=== PATIENT | female | born 1965 | race Caucasian/White ===

== ENCOUNTER → 2018-06-24 | Day surgery (SDC) | payer BC ==
[~2018-06-24] MED LIST: BUPIVACAINE 0.25% 30ML SDV INJ ONE; CEFAZOLIN SOD 2 GM/D5W 50ML 50 ML IV ONE; DEXAMETHASONE SOD PHOS INJ 4 MG/ML VIAL ONE; FENTANYL CITRATE/PF 100MCG/2 ML INJ ONE; HYDROMORPHONE 2MG/ML 2 MG/ML ML ONE; LIDOCAINE HCL 2% JELLY 5 ML TUBE ONE; LIDOCAINE HCL 2% LOCAL INJ 5 ML SDV VIAL INJ ONE; MEPERIDINE HCL INJ 25 MG/ML VIAL ONE; METOCLOPRAMIDE HCL 10 MG/2ML VIAL ONE; MIDAZOLAM HCL 2 MG/2 ML VIAL ONE; MULTI-VITAMIN1 EACH PO; NEOSTIGMINE 1 MG/ML 10ML VIAL ONE; ONDANSETRON HCL INJ 2MG/ML 2ML 2 MG/ML VIAL ONE; PROPOFOL IV EMULSION 10 MG/ML 20 ML VIAL ONE; RANITIDINE HCL300 M1 PO; SEVOFLURANE INHAL SOLN 250 ML PEN BTL ONE; UNITHROID25 MCG PO; VITAMIN C1000 MG PO; VYTORIN 10-101 EACH PO
--- OUTSIDE RECORDS SUMMARY | 2018-06-24 05:45 | XMS REPORT | Clinical Summary ---
Author Author MARCUS Alleantia [facility] Address Unknown Phone Unavailable Care Team Providers Care Salesperson Burial Plots Name Role Phone Froilan Rivas MD PCP Allergies Not on File Medications Not on file Active Problems Not on file Encounters Care Team Description Date Type Bus AnalystTimothy Mays MD Breast mass (Primary Dx) 06/20/2018 Outside Orders Central Scheduling after 06/23/2017 Social History Date Tobacco Use Types Packs/Day Years Used Never Assessed Sex Assigned at Date Recorded Not on file Industry Job Start Date Occupation Not on file Not on file Not on file Travel End Travel History Travel Start No recent travel history available. Last Filed Vital Signs Not on file Plan of Treatment Care Team Description Date Type Bus AnalystTimothy Mays MD [address] [address] [phone] 07/18/2018 Appointment Timothy Mays MD [address] [address] [phone] 07/18/2018 Appointment Results Not on fileafter 06/23/2017 Insurance Payer Benefit Subscriber ID Type Phone Address Plan / Group [employer]UE [employer] BCBS PPO xxxxxxxxxxxx PPO [phone] [address] [place] [address] CHOICE
--- OUTSIDE RECORDS SUMMARY | 2018-06-24 05:45 | XMS REPORT ---
Author Author [facility] Address Unknown Phone Unavailable Care Team Providers Care Merchandising Representative Name Role Phone Unavailable Unavailable Payers Payer Name Policy Type Policy Number Effective Date Expiration Date Problems This patient has no known problems. Allergies, Adverse Reactions, Alerts Allergy Name Allergy Type Status Severity Reaction(s) Onset Date Inactive Date Treating Clinician Comments iodine DA Active U 2016-07-06 00:00:00 albuterol DA Active U 2016-07-06 00:00:00 cefaclor DA Active U 2016-07-06 00:00:00 Medications This patient has no known medications. Results Test Description Test Time Test Comments Text Results Atomic Results Result Comments MM, U/S, BREAST, BILATERAL 2017-06-03 15:51:00 Reason for Exam:->Pain, unspecified #[id number] - MM, U/S, BREAST, BILATERALULTRASOUND OF BOTH BREASTS: 06/03/2017Color flow and real-time ultrasound of both breasts were performed. Ultrasound of all four quadrants and the retroareolar breast was performed. Helms scale images of the real-time examination were reviewed. No suspicious abnormalities were seen sonographically in either breast. IMPRESSION: BENIGN The findings have been discussed with the patient. There is no sonographic evidence of malignancy. Zoë West M.D. pth/:06/03/2017 15:51:04 Normal Exam Ultrasound BI-RADS: 2 Benign [id number] , DIGITAL MAMMO, DIAGNOSTIC, BILATERAL INCLUDING CAD 2017-06-03 14:28:00 Reason for Exam:->Pain, unspecified #[id number] - MM, DIGITAL MAMMO, DIAGNOSTIC, BILATERAL INCLUDING CADBILATERAL DIGITAL DIAGNOSTIC MAMMOGRAM WITH CAD: 06/03/2017Comparison is made to exams dated: 06/12/2016 mammogram and 05/20/2015 mammogram - [facility] hospital[facility]. The tissue of both breasts is heterogeneously dense. This may lower the sensitivity of mammography. Current study was also evaluated with a Computer Aided Detection (CAD) system. Benign appearing calcifications are present in the left breast. No significant masses, calcifications, or other findings are seen in either breast. IMPRESSION: BENIGNThere is no mammographic evidence of malignancy. A 1 year screening mammogram is recommended. Zoë West M.D. pth/:06/03/2017 14:28:47 Normal Exam Mammogram BI-RADS: 2 Benign [id number]
--- OUTSIDE RECORDS SUMMARY | 2018-06-24 05:45 | XMS REPORT | Clinical Summary ---
Author Author [facility] [place] [facility] Address Unknown Phone Unavailable Care Team Providers [employer] Analyst Name Role Phone Froilan Rivas MD PCP Allergies Comments Active Allergy Reactions Severity Noted Date Cefaclor Shortness Of High 12/12/2015 Breath Iodinated Contrast- Oral Itching, High 10/15/2016 And Iv Dye Rash, Shortness Of Breath Iodine 12/12/2015 Albuterol Sulfate Shortness Of High 12/12/2015 Breath Medications End Date Status Medication Sig Dispensed Refills Start Date Active VYTORIN 10-10 10-10 mg TAKE 1 T BY 2 per tablet MOUTH DAILY 7 Active CALCIUM CARBONATE (TUMS Take by 0 E-X ORAL) mouth. Active MAG/ALUMINUM/SOD Take by 0 BICARB/ALGINC (GAVISCON mouth. ORAL) Active UNITHROID 25 mcg tablet TK 1 T PO 3 TWICE A WEEK 8 AND 1/2 T FIVE TIMES A WEEK 06/15/2019 Active omeprazole (PriLOSEC) 20 Take 1 30 capsule 11 MG capsule capsule (20 9 mg total) by mouth daily. 07/15/2018 Active chlordiazepoxide-clidiniu Take 1 60 capsule 0 m (LIBRAX, WITH capsule by 9 CLIDINIUM,) 5-2.5 mg per mouth 3 capsule (three) times a day as needed for indigestion for up to 30 days. Active ranitidine (ZANTAC) 300 TAKE 1 60 tablet 11 MG tabletIndications: TABLET(300 9 Gastroesophageal reflux MG) BY MOUTH disease, esophagitis TWICE DAILY presence not specified Active omeprazole OTC (PriLOSEC Take 1 tablet 30 tablet 0 OTC) 20 MG EC (20 mg total) 9 tabletIndications: by mouth Gastroesophageal reflux daily. disease without esophagitis 06/15/2018 Discontinued TIROSINT 13 mcg capsule TK 1 C PO QOD 3 7 03/17/2018 amitriptyline (ELAVIL) Take 0.5 30 tablet 3 150 MG tablet tablets (75 7 mg total) by mouth nightly. 08/02/2017 Discontinued ranitidine (ZANTAC) 300 Take 1 tablet 60 tablet 3 MG tabletIndications: (300 mg 7 Gastroesophageal reflux total) by disease, esophagitis mouth 2 (two) presence not specified times a day for 30 days. 12/01/2017 Discontinued ranitidine (ZANTAC) 300 TAKE 1 60 tablet 3 MG tabletIndications: TABLET(300 8 Gastroesophageal reflux MG) BY MOUTH disease, esophagitis TWICE DAILY presence not specified 01/01/2018 Discontinued ranitidine (ZANTAC) 300 TAKE 1 60 tablet 0 201 MG tabletIndications: TABLET(300 8 Gastroesophageal reflux MG) BY MOUTH disease, esophagitis TWICE DAILY presence not specified 02/15/2018 Discontinued ranitidine (ZANTAC) 300 TAKE 1 60 tablet 0 201 MG tabletIndications: TABLET(300 8 Gastroesophageal reflux MG) BY MOUTH disease, esophagitis TWICE DAILY presence not specified 06/15/2018 Discontinued ranitidine (ZANTAC) 300 TAKE 1 60 tablet 2 201 MG tabletIndications: TABLET(300 8 Gastroesophageal reflux MG) BY MOUTH disease, esophagitis TWICE DAILY presence not specified 03/12/2018 Discontinued ranitidine (ZANTAC) 300 TAKE 1 60 tablet 0 MG tabletIndications: TABLET(300 8 Gastroesophageal reflux MG) BY MOUTH disease, esophagitis TWICE DAILY presence not specified 04/06/2018 Discontinued ranitidine (ZANTAC) 300 TAKE 1 60 tablet 0 201 MG tabletIndications: TABLET(300 8 Gastroesophageal reflux MG) BY MOUTH disease, esophagitis TWICE DAILY presence not specified 05/01/2018 Discontinued ranitidine (ZANTAC) 300 TAKE 1 60 tablet 0 MG tabletIndications: TABLET(300 8 Gastroesophageal reflux MG) BY MOUTH disease, esophagitis TWICE DAILY presence not specified 06/15/2018 Discontinued ranitidine (ZANTAC) 300 TAKE 1 60 tablet 0 12/17/201 MG tabletIndications: TABLET(300 8 Gastroesophageal reflux MG) BY MOUTH disease, esophagitis TWICE DAILY presence not specified Active Problems Not on file Encounters Care Team Description Date Type Specialty Lakia Hampton MA Gastroesophageal reflux disease without esophagitis (Primary Dx) 06/17/2018 Telephone Gastroenterology Shauna Lee MD Gastroesophageal reflux disease without esophagitis (Primary Dx); Epigastric pain; Irritable bowel syndrome, unspecified type; Bloating; Gastroesophageal reflux disease, esophagitis presence not specified 06/15/2018 Office Visit Gastroenterology Lakia Hampton MA Irritable bowel syndrome, unspecified type (Primary Dx); Bloating 06/15/2018 Orders Only Gastroenterology Abby Ignacio LVN 06/10/2018 Telephone Gastroenterology Shauna Lee MD 06/09/2018 Telephone GastroenterShauna Vance MD Gastroesophageal reflux disease, esophagitis presence not specified 06/03/2018 Refill GastroenterShauna Vance MD Gastroesophageal reflux disease, esophagitis presence not specified 05/01/2018 Refill GastroenterShauna Vance MD Gastroesophageal reflux disease, esophagitis presence not specified 04/06/2018 Refill GastroenterShauna Vance MD Gastroesophageal reflux disease, esophagitis presence not specified 03/12/2018 Refill GastroenterShauna Vance MD 02/16/2018 Refill GastroenterShauna Vance MD Gastroesophageal reflux disease, esophagitis presence not specified 02/15/2018 Refill GastroenterShauna Vance MD Gastroesophageal reflux disease, esophagitis presence not specified 01/24/2018 Refill GastroenterShauna Vance MD Gastroesophageal reflux disease, esophagitis presence not specified 01/01/2018 Refill GastroenterShauna Vance MD Gastroesophageal reflux disease, esophagitis presence not specified 12/01/2017 Refill Gastroenterology Tamar Wang MD Thyroid cancer; Thyroid nodule 10/26/2017 Hospital Radiology Encounter Tamar Wang MD Thyroid cancer (Primary Dx); Thyroid nodule 10/18/2017 Transcribe Access Orders Shauna Lee MD Gastroesophageal reflux disease, esophagitis presence not specified 08/02/2017 Refill Gastroenterology after 06/23/2017 Family History Medical History Relation Name Comments Breast cancer Maternal Grandmother Colon cancer Maternal Uncle Colon polyps Paternal Aunt Relation Name Status Comments Maternal Grandmother (Age 40) Maternal Uncle Paternal Aunt Social History Date Tobacco Use Types Packs/Day Years Used Never Smoker Smokeless Tobacco: Never Used Alcohol Use Drinks/Week oz/Week Comments No Sex Assigned at Date Recorded Not on file Industry Job Start Date Occupation Not on file Not on file Not on file Travel End Travel History Travel Start No recent travel history available. 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 Blood Pressure 124/75 06/15/2018 2:13 PM DRAPERY INSPECTOR Pulse 79 06/15/2018 2:13 PM DRAPERY INSPECTOR Temperature 36.7 C (98 F) - Respiratory Rate - - Oxygen Saturation - - Inhaled Oxygen - Concentration - Weight - 06/15/2018 2:13 PM DRAPERY INSPECTOR Height 160 cm (5' 3") - Body Mass Index - Plan of Treatment Care Team Description Date Type Specialty 07/15/2018 [facility] [address] [facility] [address] [place] [address] [phone] 07/19/2018 Consult Weight Management Health Maintenance Due Date Last Done Comments CERVICAL CANCER SCREENING 1985 COLON CANCER SCREENING 2014 SHINGLES VACCINES ( of 2014 2) BREAST CANCER SCREENING 11/09/2014 11/09/2012 INFLUENZA VACCINE 12/15/2017 Procedures Comments Procedure Name Priority Date/Time Associated Diagnosis THYROID STIMULATING Routine 01/24/2018 Hyperlipidemia, HORMONE 9:40 AM CDT unspecified hyperlipidemia type Myxedema heart disease Malignant neoplasm of thyroid gland LIPID PANEL Routine 01/24/2018 Hyperlipidemia, 9:40 AM CDT unspecified hyperlipidemia type Myxedema heart disease Malignant neoplasm of thyroid gland T4, FREE Routine 01/24/2018 Hyperlipidemia, 9:40 AM CDT unspecified hyperlipidemia type Myxedema heart disease Malignant neoplasm of thyroid gland T3, FREE Routine 01/24/2018 Hyperlipidemia, 9:40 AM CDT unspecified hyperlipidemia type Myxedema heart disease Malignant neoplasm of thyroid gland HC COMPLETE BLD COUNT Routine 01/24/2018 Hyperlipidemia, W/AUTO DIFF 9:40 AM CDT unspecified hyperlipidemia type Myxedema heart disease Malignant neoplasm of thyroid gland THYROID STIMULATING Routine 11/25/2017 Thyroid cancer HORMONE 3:11 PM CDT T4, FREE Routine 11/25/2017 Thyroid cancer 3:11 PM CDT T3, FREE Routine 11/25/2017 Thyroid cancer 3:11 PM CDT US THYROID Routine 10/26/2017 Thyroid cancer 3:19 PM CDT Thyroid nodule ZZESTIMATED GFR Routine 10/12/2017 7:44 AM CDT VITAMIN B12 LEVEL Routine 10/12/2017 Other fatigue 7:44 AM CDT Pure hypercholesterolemia Myxedema heart disease Menopause Malignant neoplasm of thyroid gland THYROID STIMULATING Routine 10/12/2017 Other fatigue HORMONE 7:44 AM CDT Pure hypercholesterolemia Myxedema heart disease Menopause Malignant neoplasm of thyroid gland LIPID PANEL Routine 10/12/2017 Other fatigue 7:44 AM CDT Pure hypercholesterolemia Myxedema heart disease Menopause Malignant neoplasm of thyroid gland INSULIN, RANDOM Routine 10/12/2017 Other fatigue 7:44 AM CDT Pure hypercholesterolemia Myxedema heart disease Menopause Malignant neoplasm of thyroid gland T4, FREE Routine 10/12/2017 Other fatigue 7:44 AM CDT Pure hypercholesterolemia Myxedema heart disease Menopause Malignant neoplasm of thyroid gland T3, FREE Routine 10/12/2017 Other fatigue 7:44 AM CDT Pure hypercholesterolemia Myxedema heart disease Menopause Malignant neoplasm of thyroid gland C-PEPTIDE Routine 10/12/2017 Other fatigue 7:44 AM CDT Pure hypercholesterolemia Myxedema heart disease Menopause Malignant neoplasm of thyroid gland CORTISOL LEVEL, RANDOM Routine 10/12/2017 Other fatigue 7:44 AM CDT Pure hypercholesterolemia Myxedema heart disease Menopause Malignant neoplasm of thyroid gland HC COMPLETE BLD COUNT Routine 10/12/2017 Other fatigue W/AUTO DIFF 7:44 AM CDT Pure hypercholesterolemia Myxedema heart disease Menopause Malignant neoplasm of thyroid gland COMPREHENSIVE METABOLIC Routine 10/12/2017 Other fatigue PANEL 7:44 AM CDT Pure hypercholesterolemia Myxedema heart disease Menopause Malignant neoplasm of thyroid gland HEMOGLOBIN A1C Routine 10/12/2017 Other fatigue 7:44 AM CDT Pure hypercholesterolemia Myxedema heart disease Menopause Malignant neoplasm of thyroid gland VITAMIN D 25 HYDROXY Routine 10/12/2017 Other fatigue LEVEL 7:44 AM CDT Pure hypercholesterolemia Myxedema heart disease Menopause Malignant neoplasm of thyroid gland THYROID STIMULATING Routine 07/15/2017 Hypothyroidism, HORMONE 4:15 PM DRAPERY INSPECTOR unspecified type Thyroid cancer T4, FREE Routine 07/15/2017 Hypothyroidism, 4:15 PM DRAPERY INSPECTOR unspecified type Thyroid cancer T3, FREE Routine 07/15/2017 Hypothyroidism, 4:15 PM DRAPERY INSPECTOR unspecified type Thyroid cancer after 06/23/2017 Results * CBC with platelet and differential (01/24/2018 9:40 AM CDT) Only the most recent of 2 results within the time period is included. WBC 6.7 4.5 - 11.0 k/uL [facility] DEPARTMENT OF PATHOLOGY AND GENOMIC MEDICINE RBC 4.08 (L) 4.20 - 5.50 m/uL [facility] DEPARTMENT OF PATHOLOGY AND GENOMIC MEDICINE HGB 13.1 12.0 - 16.0 g/dL [facility] DEPARTMENT OF PATHOLOGY AND GENOMIC MEDICINE HCT 38.9 37.0 - 47.0 % [facility] DEPARTMENT OF PATHOLOGY AND GENOMIC MEDICINE MCV 95.3 82.0 - 100.0 fL [facility] DEPARTMENT OF PATHOLOGY AND GENOMIC MEDICINE MCH 32.1 27.0 - 34.0 pg [facility] DEPARTMENT OF PATHOLOGY AND GENOMIC MEDICINE MCHC 33.7 31.0 - 37.0 g/dL [facility] DEPARTMENT OF PATHOLOGY AND GENOMIC MEDICINE RDW - SD 41.1 37.0 - 55.0 fL [facility] DEPARTMENT OF PATHOLOGY AND GENOMIC MEDICINE MPV 10.0 6.9 - 11.0 fL [facility] DEPARTMENT OF PATHOLOGY AND GENOMIC MEDICINE Platelet count 293 150 - 400 K/uL [facility] DEPARTMENT OF PATHOLOGY AND GENOMIC MEDICINE Nucleated RBC 0.00 /100 WBC [facility] DEPARTMENT OF PATHOLOGY AND GENOMIC MEDICINE Neutrophils 57.5 39.0 - 69.0 % [facility] DEPARTMENT OF PATHOLOGY AND GENOMIC MEDICINE Lymphocytes 33.0 25.0 - 45.0 % [facility] DEPARTMENT OF PATHOLOGY AND GENOMIC MEDICINE Monocytes 7.0 0.0 - 10.0 % [facility] DEPARTMENT OF PATHOLOGY AND GENOMIC MEDICINE Eosinophils 1.6 0.0 - 5.0 % [facility] DEPARTMENT OF PATHOLOGY AND GENOMIC MEDICINE Basophils 0.6 0.0 - 1.0 % [facility] OF PATHOLOGY AND GENOMIC MEDICINE Immature granulocytes 0.3 0.0 - 1.0 % [facility] OF PATHOLOGY AND GENOMIC MEDICINE Specimen Blood Performing Organization Address City/[facility] [place] [address] PATHOLOGY AND [facility] * T3, free (01/24/2018 9:40 AM CDT) Only the most recent of 4 results within the time period is included. T3, free 2.7 2.4 - 4.2 pg/mL [email or web address] Comment: REFERENCE INTERVAL: Triiodothyronine, Free (Free T3) Access complete set of age- and/or gender-specific reference intervals for this test in the [facility] Laboratory Test Directory ([facility]). Performed by [facility], [address] [place] [address] [id number] [email or web address], Gerardo Verduzco MD - Lab. Director Specimen Serum Performing Organization Address [facility] Centercode Phone Number [email or web address] [address] [address] * Thyroid stimulating hormone (01/24/2018 9:40 AM CDT) Only the most recent of 4 results within the time period is included. TSH 2.98 0.27 - 4.20 uIU/mL [facility] DEPARTMENT OF PATHOLOGY AND [employer] MEDICINE Specimen Blood Performing Organization Address City/[facility] [place] [address] PATHOLOGY AND [facility] * T4, free (01/24/2018 9:40 AM CDT) Only the most recent of 4 results within the time period is included. T4, free 1.5 0.9 - 1.7 ng/dL [facility] DEPARTMENT OF PATHOLOGY AND GENOMIC MEDICINE Specimen Blood Performing Organization Address City/[facility]/Zipcode Phone Number [facility] [address] [place] [address] PATHOLOGY AND GENOMIC MEDICINE * Lipid panel (01/24/2018 9:40 AM CDT) Only the most recent of 2 results within the time period is included. Cholesterol 173 0 - 199 mg/dL [facility] DEPARTMENT OF PATHOLOGY AND GENOMIC MEDICINE Triglycerides 93 0 - 149 mg/dL [facility] DEPARTMENT OF PATHOLOGY AND GENOMIC MEDICINE HDL cholesterol 59 40 - 99,999 mg/dL [facility] DEPARTMENT OF PATHOLOGY AND GENOMIC MEDICINE LDL cholesterol 103 (H) 0 - 99 mg/dL [facility] DEPARTMENT OF PATHOLOGY AND GENOMIC MEDICINE Lipid panel See below [facility] DEPARTMENT OF interpretation Comment: PATHOLOGY AND Total Cholesterol GENOMIC MEDICINE (mg/dL) <200 Desirable 200-239Borderline -high >=240High Triglycerides (mg/dL) <150 Normal 150-199Borderline -high 200-499High >=500Very high HDL Cholesterol (mg/dL) <40Low (male) <50Low (female) LDL Cholesterol (mg/dL) <100 Optimal 100-129Near or above optimal 130-159Borderline -high 160-189High >=190Very high Risk Catergories that modify LDL goals. Risk Catergories LDL goal (mg/dL) CHD and CHD risk equivalent<100 (10-year risk >20%) Multiple (2+) risk factors <130 (10-year risk=<20%) 0-1 risk factors <160 (<10-year risk) Defining levels of lipids in metabolic syndrome Triglycerides >=150 mg/dL HDL Cholesterol Men <40 mg/dL Women <50 mg/dL Non-HDL cholesterol is a second target for therapy in persons with high triglycerides (>=200 mg/dL) Specimen Blood Performing Organization Address City/[facility]/Zipcode Phone Number [facility] [address] [place] [address] PATHOLOGY AND GENOMIC MEDICINE * US Thyroid (10/26/2017 3:19 PM CDT) Narrative Performed At EXAMINATION:US THYROID [facility] CLINICAL HISTORY:C73 Malignant neoplasm of thyroid gland, E04.1 Nontoxic single thyroid nodule, C73E04.1 TECHNIQUE: Sonographic imaging over the thyroid gland was performed. COMPARISON:04/29/2017 FINDINGS: Postsurgical changes from left thyroidectomy are again noted. No masses are present within the left thyroidectomy bed. The right lobe is enlarged and measures 5.6 x 1.5 x 2.1 cm. Multiple mixed cystic and solid nodules in the right lobe appears stable to previous examination, largest measuring 0.9 x 0.5 x 0.7 cm. No suspicious nodules are seen. IMPRESSION: Status post left thyroidectomy. No nodules are seen in the left thyroidectomy bed. Multiple small mixed cystic and solid nodules in the right lobe, the largest measuring 0.9 cm in greatest dimension are stable to previous exam. No suspicious nodules are seen. [facility]-[id number] Procedure Note Interface, Radiology Results Incoming - 10/26/2017 3:29 PM CDT EXAMINATION: US THYROID CLINICAL HISTORY: C73 Malignant neoplasm of thyroid gland, E04.1 Nontoxic single thyroid nodule, C73 E04.1 TECHNIQUE: Sonographic imaging over the thyroid gland was performed. COMPARISON: 04/29/2017 FINDINGS: Postsurgical changes from left thyroidectomy are again noted. No masses are present within the left thyroidectomy bed. The right lobe is enlarged and measures 5.6 x 1.5 x 2.1 cm. Multiple mixed cystic and solid nodules in the right lobe appears stable to previous examination, largest measuring 0.9 x 0.5 x 0.7 cm. No suspicious nodules are seen. IMPRESSION: Status post left thyroidectomy. No nodules are seen in the left thyroidectomy bed. Multiple small mixed cystic and solid nodules in the right lobe, the largest measuring 0.9 cm in greatest dimension are stable to previous exam. No suspicious nodules are seen. [facility]-[id number] Performing Organization Address City/State/Zipcode Phone Number [facility] [address] [place] [address] * Estimated GFR (10/12/2017 7:44 AM CDT) GFR Non Af Amer 87 mL/min/1.73 m2 [facility] DEPARTMENT OF PATHOLOGY AND GENOMIC MEDICINE GFR Af Amer >90 mL/min/1.73 m2 [facility] DEPARTMENT OF Comment: PATHOLOGY AND Chronic kidney disease: <60 GENOMIC MEDICINE mL/min/1.73m2 Kidney failure: <15 mL/min/1.73m2 The estimated GFR is calculated from the IDMS-traceable Modification of Diet in Renal Disease Equation. The accuracy of the calculation is poor when the creatinine is normal. Calculated values >90 mL/min/1.73m2 are not reported. This equation has not been validated in children (<18 years), women, the elderly (>70 years), or ethnic groups other than Caucasians and Americans. Specimen Plasma specimen Performing Organization Address City/State/Zipcode Phone Number [facility] [address] [place] [address] PATHOLOGY AND GENOMIC MEDICINE * Insulin, random (10/12/2017 7:44 AM CDT) Insulin, random 15.2Comment: The reference mU/L [facility] DEPARTMENT OF interval for fasting insulin PATHOLOGY AND is 2.6-24.9 mU/L GENOMIC MEDICINE Specimen Plasma specimen Performing Organization Address [facility] Centercode Phone Number [facility] [address] [place] [address] PATHOLOGY AND GENOMIC MEDICINE * Vitamin D 25 hydroxy level (10/12/2017 7:44 AM CDT) Vitamin D, 25-hydroxy 43.5 30.0 - 150.0 ng/mL [facility] DEPARTMENT OF Comment: PATHOLOGY AND This assay reports the sum of GENOMIC MEDICINE 25-hydroxy vitamin D3 and 25-hydroxy vitamin D2. Reference range: 0-17 years: Deficiency: less than 20ng/mL Optimum level: greater than or equal to 20 ng/mL. 18 years and older: Deficiency: less than 20ng/mL Insufficiency: 20-29 ng/mL Optimum Level: 30-80 ng/mL The assay reportable range is 3.4155.9 ng/mL. Levels higher than 150 ng/mL may be associated with toxicity. If toxicity is clinically suspected and the reported result is >155.9 ng/mL,contact lab for alternative methods to obtain a definitivelevel. If separate quantitation of 25-hydroxy vitamin D3 and 25-hydroxy vitamin D2 is needed, please contact lab for alternative methods. Specimen Blood Performing Organization Address City/State/Zipcode Phone Number [facility] DEPARTMENT OF [address] [place] [address] PATHOLOGY AND GENOMIC MEDICINE * C-peptide (10/12/2017 7:44 AM CDT) C-peptide 3.1 1.1 - 4.4 ng/mL [facility] DEPARTMENT OF PATHOLOGY AND GENOMIC MEDICINE Specimen Plasma specimen Performing Organization Address City/[facility] Centercode Phone Number [facility] DEPARTMENT [address] [place] [address] PATHOLOGY AND GENOMIC MEDICINE * Hemoglobin A1c (10/12/2017 7:44 AM CDT) Hemoglobin A1C 5.2 4.0 - 6.0 % [facility] DEPARTMENT OF Comment: PATHOLOGY AND GENOMIC MEDICINE Less than 6% - Goal of therapy for Type II Diabetes Less than 7%-Goal of therapy for Type I Diabetes Less than 8%-Accepta ble control for Type I or Type II Diabetes Greater than 8%-Unacceptabl e control; action indicated. (ADA94) Specimen Blood Performing Organization Address [facility] Centercode Phone Number [address] [address] PATHOLOGY AND GENOMIC MEDICINE * Vitamin B12 level (10/12/2017 7:44 AM CDT) Vitamin B12 779 211 - 946 pg/mL [facility] DEPARTMENT OF Comment: PATHOLOGY AND Significant overlap exists GENOMIC MEDICINE between normal and deficiency states. However, most patients with deficiencies will have Serum B12 <200 pg/mL. Specimen Serum Performing Organization Address [facility] Centercoak Phone Number [address] [address] PATHOLOGY AND GENOMIC MEDICINE * Cortisol level, random (10/12/2017 7:44 AM CDT) Cortisol, random 20 ug/dL [facility] DEPARTMENT OF Comment: PATHOLOGY AND Reference Ranges are not GENOMIC MEDICINE established for non-timed Cortisol levels. Reference Range for Timed Cortisol: 6 - 10 AM 6 - 18 ug/dl 4 - 8PM 3 - 11 ug/dl Specimen Plasma specimen Performing Organization Address City/[facility]/Zipcode Phone Number [facility] [address] [place] [address] PATHOLOGY AND GENOMIC MEDICINE * Comprehensive metabolic panel (10/12/2017 7:44 AM CDT) Sodium 141 135 - 148 mEq/L [facility] DEPARTMENT OF PATHOLOGY AND GENOMIC MEDICINE Potassium 4.2 3.5 - 5.0 mEq/L [facility] DEPARTMENT OF PATHOLOGY AND GENOMIC MEDICINE Chloride 102 98 - 112 mEq/L [facility] DEPARTMENT OF PATHOLOGY AND GENOMIC MEDICINE CO2 27 24 - 31 mEq/L [facility] DEPARTMENT OF PATHOLOGY AND GENOMIC MEDICINE Anion gap 12@ANIO 7 - 15 mEq/L [facility] DEPARTMENT OF PATHOLOGY AND GENOMIC MEDICINE BUN 22 (H) 6 - 20 mg/dL [facility] DEPARTMENT OF PATHOLOGY AND GENOMIC MEDICINE Creatinine 0.7 0.5 - 0.9 mg/dL [facility] DEPARTMENT OF PATHOLOGY AND GENOMIC MEDICINE Glucose 97 65 - 99 mg/dL [facility] DEPARTMENT OF PATHOLOGY AND GENOMIC MEDICINE Calcium 9.4 8.3 - 10.2 mg/dL [facility] DEPARTMENT OF PATHOLOGY AND GENOMIC MEDICINE Protein 7.9 6.3 - 8.3 g/dL [facility] DEPARTMENT OF PATHOLOGY AND GENOMIC MEDICINE Albumin 4.6 3.5 - 5.0 g/dL [facility] DEPARTMENT OF PATHOLOGY AND GENOMIC MEDICINE A/G ratio 1.4 0.7 - 3.8 [facility] DEPARTMENT OF PATHOLOGY AND GENOMIC MEDICINE Alkaline phosphatase 64 35 - 104 U/L [facility] DEPARTMENT OF PATHOLOGY AND GENOMIC MEDICINE AST 17 10 - 35 U/L [facility] DEPARTMENT OF PATHOLOGY AND GENOMIC MEDICINE ALT 27 5 - 50 U/L [facility] DEPARTMENT OF PATHOLOGY AND GENOMIC MEDICINE Total bilirubin 0.4 0.2 - 1.2 mg/dL [facility] DEPARTMENT OF PATHOLOGY AND GENOMIC MEDICINE Specimen Plasma specimen Performing Organization Address City/State/Zipcode Phone Number [address] [address] PATHOLOGY AND GENOMIC MEDICINE after 06/23/2017 Insurance Payer Benefit Subscriber ID Type Phone Address Plan / Group BCBS BCBS xxxxxxxxxxxx PPO CHOICE PPO/DEVYN JARA PPO Advance Directives Patient has advance care planning documents on file. For more information, mirela kendrick contact: Duarte Trejo [address] [place] [address]
--- NOTE | 2018-06-24 06:36 | Diagnostic Imaging Report ---
EXAM: XR CHEST 2 VIEWS DATE: 06/24/2018 6:19 AM INDICATION: Preoperative, bunion surgery, pain COMPARISON: None FINDINGS: Lines and Tubes: None Heart and Mediastinum: No acute cardiomediastinal findings. Lungs and Pleura: No significant pleural effusion, pneumothorax, or focal consolidation. Bones and Soft Tissues: No acute findings. IMPRESSION: 1. No acute cardiopulmonary findings. Signed by: Dr. Daniel Bradley MD on 06/24/2018 6:33 AM
[2018-06-24 06:58] LABS: BASOPHILS % 0.7 % (0.0-1.0); EOSINOPHILS # (AUTO) 0.1 (0.0-0.4); EOSINOPHILS % 2.4 % (0.0-6.0); HEMATOCRIT 37.9 % (34.2-44.1); HEMOGLOBIN 13.1 g/dL (12.0-16.0); LYMPHOCYTES # (AUTO) 2.4 (1.0-3.2); LYMPHOCYTES % 43.8 % (18.0-39.1); MEAN CORPUSCULAR HEMOGLOBIN 32.2 pg (28-32); MEAN CORPUSCULAR HGB CONC 34.6 g/dL (31-35); MEAN CORPUSCULAR VOLUME 93.1 fL (81-99); MONOCYTES # (AUTO) 0.5 (0.2-0.8); MONOCYTES % 8.2 % (4.4-11.3); NEUTROPHILS # (AUTO) 2.5 (2.1-6.9); NEUTROPHILS % 44.7 % (38.7-80.0); PLATELET COUNT 283 x10e3/uL (140-360); RED BLOOD COUNT 4.07 x10e6/uL (3.6-5.1); RED CELL DISTRIBUTION WIDTH 11.9 % (11.7-14.4)
[2018-06-24 07:11] LABS: ANION GAP 15.1 mmol/L (8-16); BLOOD UREA NITROGEN 21 mg/dL (7-26); BUN/CREATININE RATIO 27 (6-25); CALCIUM 9.5 mg/dL (8.4-10.2); CARBON DIOXIDE 25 mmol/L (22-29); CHLORIDE 102 mmol/L (98-107); CREATININE, SERUM 0.77 mg/dL (0.57-1.11); EST GLOMERULAR FILTRATION RATE > 60 ML/MIN (60-); GLUCOSE 92 mg/dL (74-118); POTASSIUM 4.1 mmol/L (3.5-5.1); SODIUM 138 mmol/L (136-145)
[2018-06-24 11:00] VITALS: BP 121/70
--- NOTE | 2018-06-24 16:33 | Operative Report ---
DATE OF PROCEDURE: June 24, 2018 PREOPERATIVE DIAGNOSES 1. Cystic lesion on the dorsal lateral aspect of the right foot. 2. Painful hardware, 1st metatarsophalangeal joint, right foot. 3. Painful bunion, right foot. POSTOPERATIVE DIAGNOSES 1. Cystic lesion on the dorsal lateral aspect of the right foot. 2. Painful hardware, 1st metatarsophalangeal joint, right foot. 3. Painful bunion, right foot. TITLE OF OPERATIONS 1. Excision of cystic lesion, dorsal lateral aspect of the right foot. 2. Removal of hardware, 1st metatarsal and hallux of the right foot, 2 separate sites. 3. Modified Kowalski bunionectomy of the right foot. PROCEDURE IN DETAIL: The patient was taken to the operating room in a mildly sedated state and placed upon the operating table in the supine position. Following induction of general anesthetic, the right lower extremity was elevated to 60 degrees to exsanguinate before inflating the pneumatic thigh tourniquet to 350 mmHg for good hemostasis. The right lower extremity was placed upon the operating table prior to performing the following procedure. PROCEDURE #1: Excision of the cystic lesion on the dorsal lateral aspect of the right foot. An approximately 4 cm dorsal linear incision was made overlying the large cystic lesion on the dorsal aspect of the right foot. The incision was deepened via sharp and blunt dissection down to the level of the cystic lesion. The lesion was circumscribed and noted to be fluctuant in nature. This had a yellow fatty appearance appearing to be at this point more of a lipoma than an actual ganglion cyst. The cyst as it was resected was dissected appropriately and sent to pathology for further evaluation. All superficial bleeders and deep bleeders were electrocauterized. The extensor digitorum brevis muscle belly was identified underlying the lipoma. The area was irrigated with copious amounts of sterile saline solution. Deep closure was 3-0 Vicryl and subcutaneous closure was 4-0 Prolene. This was done over a TLS drain to prevent hematoma or any other static fluid buildup. The attention was then directed to the 1st metatarsophalangeal joint where a bunionectomy had previously been performed. There was painful hardware, both within the head of the 1st metatarsal and also within the base of the proximal phalanx. Dorsal dissection through an approximate 4-cm incision revealed a significant amount of granulation tissue and joint hypertrophy, as well as inflammatory tissue surrounding the hardware. This hardware was resected after the appropriate dissection utilizing a appropriate screwdriver. This having been accomplished, the area was irrigated, and the dorsal portion of bone was resected secondarily. The base of the proximal phalanx was further dissected. Utilizing fluoroscopy, the pin was identified and resected in a similar manner. The screws were evaluated and noted to be whole without any flaws. They were placed previously intra-articularly around the perimeter of the bone. The area was irrigated with copious amounts of sterile saline solution. A McGlamry elevator was used to release the adhesions surrounding this significantly inflamed joint. This having been accomplished, the area was irrigated with copious amounts of sterile saline solution. A modified Kowalski bunionectomy was performed with the resection and remodeling of the medial aspect of the proximal phalanx, as well as the medial aspect and remaining dorsal aspect of the 1st metatarsal head. This having been accomplished, the area was irrigated with copious amounts of sterile saline solution once again. Deep closure and capsule repair was achieved with 3-0 Vicryl, subcutaneous closure with 4-0 Vicryl and skin closure with 4-0 Prolene. All incisions were covered with a Mastisol and Steri-Strip. This patient tolerated this well. The area was once again blocked with 0.5 Marcaine, Decadron [place], and a human tissue allograft was used to fill in the void of the cystic lesion, as well as the remaining highly inflamed 1st metatarsophalangeal joint. These areas were then blocked accordingly. A posterior tibial nerve block was achieved with Marcaine, 0.5% plain. The appropriate mildly compressive dressings were applied and released the pneumatic thigh tourniquet. It showed a normal hyperemic flush to all digits of the right foot. The patient left the operating room with vital signs stable and in apparent satisfactory condition having tolerated both anesthetic and procedure very well. Job#: [id number] [place]
== END | disposition home or self-care (01) ==
LOC: OR 05:41
PROVIDERS: ATTEND Podiatrist Foot Surgery
DX: D17.23 Benign lipomatous neoplasm of skin and subcutaneous tissue of right leg (principal); T84.498A Other mechanical complication of other internal orthopedic devices, implants and grafts, initial encounter; M20.11 Hallux valgus (acquired), right foot; M79.671 Pain in right foot; Z01.810 Encounter for preprocedural cardiovascular examination; Z01.812 Encounter for preprocedural laboratory examination; Z01.811 Encounter for preprocedural respiratory examination; Z88.8 Allergy status to other drugs, medicaments and biological substances; Z91.048 Other nonmedicinal substance allergy status; M21.611 Bunion of right foot
CPT/HCPCS: 11426; 20680; 28292; 36415; 71046; 80048; 85025; 88304; 93005; J0690; J1100; J1170; J2001 ×2; J2175; J2250; J2405; J2704; J2710; J2765; Q4100